=== PATIENT | male | born 1940 | race Caucasian/White ===

== ENCOUNTER → 2016-05-03 | Outpatient (CLI) | payer OTHER | LOC: FCPNEURO 23:06 | PROVIDERS: ATTEND Psychiatry & Neurology Sleep Medicine | DX: G47.33 Obstructive sleep apnea (adult) (pediatric) (principal); G47.39 Other sleep apnea ==

== ENCOUNTER → 2017-07-27 | Outpatient (CLI) | payer OTHER | LOC: BHFA 13:15 | PROVIDERS: ATTEND Internal Medicine Cardiovascular Disease | DX: Z95.2 Presence of prosthetic heart valve (principal) ==

== ENCOUNTER → 2017-08-04 | Outpatient (CLI) | payer OTHER | LOC: BHFA 14:00 | PROVIDERS: ATTEND Internal Medicine Cardiovascular Disease | PROC: 4A12XM4 Monitoring of Cardiac Stress, External Approach (ICD-10-PCS; principal; 2017-08-04) | DX: I25.10 Atherosclerotic heart disease of native coronary artery without angina pectoris (principal) | CPT/HCPCS: 78452; 93017; A9500; J2785 ==

== ENCOUNTER 2017-08-24 08:00 | Observation (INO) | payer OTHER ==
[2017-08-24] MEDS ORDERED: NITROGLYCERIN 1,500 MCG/15 ML VIAL MISC ONE (11:02)
[2017-08-24] MEDS ORDERED: IOPAMIDOL (ISOVUE-370) 150 ML BTL IV ONE (11:05)
[2017-08-24] MEDS ORDERED: CLOPIDOGREL BISULFATE 75 MG TAB ONE (11:57)
[2017-08-24] MEDS ORDERED: ATROPINE SULFATE 1 MG/10 ML SYR ONE (14:09)
[2017-08-24] MEDS ORDERED: ATORVASTATIN CALCIUM 20 MG TAB ONE (19:46)
[2017-08-24] MEDS ORDERED: METOPROLOL TARTRATE 25 MG TAB ONE (19:46)
[2017-08-24] MEDS ORDERED: ATORVASTATIN CALCIUM 20 MG TAB PO SCH (22:45)
[2017-08-25] MEDS ORDERED: LEVOTHYROXINE 50 MCG TAB ONE (03:51)
[2017-08-25] MEDS: METOPROLOL SUCCINATE XR 25 MG TAB PO SCH ×2 (05:45→08:45)
[2017-08-25] MEDS ORDERED: LEVOTHYROXINE 50 MCG TAB PO SCH (06:00)
[2017-08-25] MEDS ORDERED: INSULIN GLARGINE 100 UNITS/ML UNIT SC SCH (09:00)
[2017-08-25] MEDS ORDERED: SPIRONOLACTONE 25 MG TAB PO SCH (09:00)
[2017-08-25] MEDS ORDERED: ASPIRIN 81 MG CHEWABLE TAB PO SCH (09:00)
[2017-08-25] MEDS ORDERED: COLESTIPOL HCL 1 GM TAB PO SCH (09:00)
[2017-08-25] MEDS ORDERED: CLOPIDOGREL BISULFATE 75 MG TAB PO SCH (09:00)
--- NOTE | 2017-08-25 09:43 | PDDXCAT ---
Diagnostic Cath Note - . Date: 08/25/17 Hospital Admissions Clerk: Tiffany Indication: Class I/II angina, intolerance to med therapy or failure to respond , other (CCS Class II angina. Intermediate risk test) - Procedure Access: right groin Procedure: left heart catheterization, coronary angiography, left ventriculogram , vein graft injection, CAZARES injection, right heart catheterization - Materials Left Heart Cath size: 7F Left Heart Cath materials: standard multipack (JL4, JR4, pigtail) Right Heart Cath size: 7F Right Heart Cath materials: PWP catheter - Findings-Left Heart Catheterization LM: The LM is 8mm in size and bifurcates into an LAD and circumflex system. LAD: The LAD is 3.5 mm in size and has been previously stented. The distal stents reveal 80% in-stent restenosis with ABDI III flow. The graft distal to the lesion is atretic and fills with contrast that does not clear consistent with an occlusion of the graft, making it non functional. LCX: The circumflex is dominant. The previously stented segment is widely patent. There is a 95% obstruction of the circumflex OM. ABDI III flow. the graft distal to this lesion does not have competitive flow consistent with occlusion. RCA: The RCA is known to be non-dominant and was not injected. It is about 2.5 mm in size. There is disease consistent with atherosclerosis, but no evidence of flow limiting obstruction is identified. ABDI III flow throughout. rSVG: We were unable to selectively inject the grafts; however, there was no longer evidence of competitive flow in the rSVG to the distal LAD and rSVG to the lateral circumflex. This finding is consistent with occluded grafts. CAZARES: The CAZARES to the LAD diagonal is widely patent and has matured without evidence of obstruction to the level of the anastamosis. EDP: LVEDP is 19 mmHg LVEF: The EF is 50% Wall motion: There are anterior wall motion abnormalities. The ejection fraction is low normal. - Findings-Right Heart Catheterization RA: Mean 12 mmHg RV: Pressure 41/6, End diastolic pressure 13mmHg PA: Pressure: 39/19. Saturation: 64.6% PAOP: Wedge pressure 19mmHg. AO: Saturation 96.5% CO: 4.25 L/min CI: 2.29 L/min/m2 Complications: NONE. Estimated blood loss: <50ml Closure method: manual pressure Assessment: The patient has severe vessel coronary artery disease including flow limiting obstruction of the left circumflex OM (95% pre stent) and 80% mid- LAD in-stent restenosis that both required stent implantation. Plan: Dual antiplatelet therapy with Aspirin 325mg for the first month followed by Aspirin 81mg along with Plavix 75mg daily should be continued for at least 1 year following drug eluting stent implantation. No elective surgery for the first 3 months. Decisions to stop dual antiplatelet therapy before 1 year should involve our office [facility]. We will also continue to treat his coronary disease with aggressive medical therapy including daily statin therapy. Intervention: A 7 Tajik JL4 guiding catheter was used for guide catheter support. A 0.014 Intuition Guide Wire was advanced across the mid-LAD lesion in question (80% in- stent restenosis) under direct fluoroscopic and angiographic guidance. A 2.75 x 15 mm NC Emerge balloon was used to pre-dilate the lesion and was inflated to a maximum pressure of 14 chandra. The balloon was then exchanged for a Synergy 2.75 x 28 mm drug eluting stent. S/p stent implantation there was 10% residual stenosis. ABDI III flow pre and post stent implantation. A Washer Assembler 50 wire was then advanced across the circumflex OM lesion (95% obstruction) under direct fluoroscopic and angiographic guidance. The lesion was primarily stented with a Synergy 2.5 x 16 mm drug eluting stent. A 2.75 x 8 mm NC Emerge balloon was used for post-stent dilation. S/p stent implantation there was 10% residual stenosis. ABDI III flow pre and post stent implantation. Patient Problems: Problems Problem Status Onset Aortic stenosis, severe Acute Ascending aortic aneurysm Acute CAD, multiple vessel Acute Mitral insufficiency Acute Postoperative complete heart block Acute S/P CABG x 3 Acute S/P aortic valve replacement with stentless valve Acute S/P ascending aortic replacement Acute S/P mitral valve repair Acute S/P placement of cardiac pacemaker Acute HTN (hypertension) Chronic Hypothyroidism Chronic Type 2 diabetes mellitus Chronic
--- NOTE | 2017-08-25 11:04 | CPEKG ---
Heart Rate: 68 RR Interval: 882 P-R Interval: 180 QRSD Interval: 146 QT Interval: 448 QTC Interval: 477 P [place]: 0 QRS [place]: -68 T Wave [place]: 100 EKG Severity - ABNORMAL ECG - EKG Impression: A-V DUAL-PACED RHYTHM WITH SOME INHIBITION Electronically Signed By: Michael Stevens 25-Aug-2017 20:35:41
[2017-08-25 12:36] VITALS: BP 136/64
--- NOTE | 2017-08-25 13:06 | GDS ---
[f rep st] DISCHARGE SUMMARY DISCHARGE DIAGNOSES: 1. Coronary artery disease with previous coronary artery bypass graft. He is status post stenting to the left circumflex OM and left anterior descending artery on 08/24/2017. 2. Previous aortic valve repair, mitral valve annuloplasty and ascending aortic aneurysm repair. 3. History of nonsustained ventricular tachycardia. 4. Diabetes. 5. Hyperlipidemia. HOSPITAL COURSE: The patient is a 76-year-old male with a history of AVR, mitral valve annuloplasty, ascending aortic aneurysm repair, three-vessel CABG and left atrial appendage closure in October 2014. His procedure was complicated by complete heart block requiring pacemaker placement and CVA. He presented to our office complaining of dyspnea on exertion. He was found to have 1 short run of nonsustained ventricular tachycardia on June 10. This prompted a nuclear stress test which was abnormal with a small anterior defect consistent with ischemia. Ultimately, the decision was made to proceed with a right and left heart catheterization. For details of the procedure, please see full cardiac cath report. Unfortunately, I am unable to access it secondary to [employer] being down. Briefly, he was found to have significant disease to the left circumflex OM as well as LAD which were both stented with good results. He also had a right heart catheterization which was negative for pulmonary hypertension. Mitral stenosis was also assessed and negative. The following morning, the patient denied any chest discomfort. He did note dizziness going from sitting to a standing position had improved post stenting. PHYSICAL EXAMINATION: GENERAL: Patient appears in no acute distress. VITAL SIGNS: Blood pressure 136/64, heart rate 60, oxygen saturation of 97% on room air, afebrile. LUNGS: Clear to auscultation. No wheezes, rhonchi, or crackles auscultated. CARDIAC: Regular rate and rhythm with positive systolic murmur. EXTREMITIES: No evidence of edema. Right groin where access was obtained for the angiogram is clean and intact without any evidence of infection or significant hematoma. DISCHARGE MEDICATIONS: He will begin Plavix 75 mg daily and increase his aspirin to 325 mg daily. He is aware that he is to hold metformin 1000 mg twice daily for 48 hours post procedure and then to resume normally. He will continue vitamin C, herbal supplement, multivitamin, Lipitor 20 mg at bedtime, vitamin D3, Colestid 2 g twice daily, metoprolol XL 25 mg half tab twice daily, Synthroid 50 mcg daily, insulin detemir 22-26 units daily, fish oil daily, Aldactone 25 mg daily. PLAN: The patient is currently stable and ready for discharge home. He has been given groin precautions. He is aware that he is to hold metformin for 48 hours post procedure and then to resume normally. He will remain on aspirin and Plavix for minimum of 1 year. He will follow up in our office in 1 week as scheduled. Greater than 30 minutes was spent coordinating the patients care today. /[id number]/MODL MTDD
== END 2017-08-25 13:03 | disposition home or self-care (01) ==
LOC: FCATH 08:00 → F2W 11:30
PROVIDERS: ADMIT Internal Medicine Cardiovascular Disease; ATTEND Internal Medicine Cardiovascular Disease
PROC: B2181ZZ Fluoroscopy of Left Internal Mammary Bypass Graft using Low Osmolar Contrast (ICD-10-PCS; principal; 2017-08-24)
PROC: 027134Z Dilation of Coronary Artery, Two Arteries with Drug-eluting Intraluminal Device, Percutaneous Approach (ICD-10-PCS; principal; 2017-08-24)
PROC: B2111ZZ Fluoroscopy of Multiple Coronary Arteries using Low Osmolar Contrast (ICD-10-PCS; principal; 2017-08-24)
PROC: B2151ZZ Fluoroscopy of Left Heart using Low Osmolar Contrast (ICD-10-PCS; principal; 2017-08-24)
PROC: B21F1ZZ Fluoroscopy of Other Bypass Graft using Low Osmolar Contrast (ICD-10-PCS; principal; 2017-08-24)
PROC: 4A023N8 Measurement of Cardiac Sampling and Pressure, Bilateral, Percutaneous Approach (ICD-10-PCS; principal; 2017-08-24)
DX: I25.119 Atherosclerotic heart disease of native coronary artery with unspecified angina pectoris (principal); T82.857A Stenosis of other cardiac prosthetic devices, implants and grafts, initial encounter; Z95.1 Presence of aortocoronary bypass graft; Z95.2 Presence of prosthetic heart valve; E11.9 Type 2 diabetes mellitus without complications; E78.5 Hyperlipidemia, unspecified; Z79.4 Long term (current) use of insulin
CPT/HCPCS: 93005; 93461; C1725; C1769; C1874; C1887; C9600; J1644; Q9967; J0461

== ENCOUNTER 2017-12-31 09:36 | Day surgery (SDC) | payer OTHER ==
[2017-12-31] MEDS ORDERED: BENZOCAINE UNIT DOSE SPRAY HURRICAINE MM ONE (09:40)
[2017-12-31] MEDS ORDERED: ATROPINE SULFATE 1 MG/10 ML SYR IVP ONE (09:40)
[2017-12-31] MEDS ORDERED: fentaNYL 100 MCG/2 ML INJ IVP ONE (09:40)
[2017-12-31] MEDS ORDERED: NS 500 ML IV ONE (09:40)
[2017-12-31] MEDS ORDERED: MIDAZOLAM 2 MG/2 ML VIAL IVP ONE (09:40)
--- NOTE | 2017-12-31 10:49 | PDANEPAE ---
ANE History of Present Illness A flutter for STEFAN/CV ANE Past Medical History - Cardiovascular History Hx Hypertension: Yes Hx Arrhythmias: No Hx Chest Pain: No Hx Coronary Artery / Peripheral Vascular Disease: Yes Hx CHF / Valvular Disease: Yes Hx Palpitations: No Cardiovascular History Comment: HTN. AORTIC STENOSIS. ASCENDING AORTIC ANEURYSM. BICUSPID AORTIC VALVE. CAD. HYPERCHOLESTEROLEMIA. STENTS X5 - Pulmonary History Hx COPD: No Hx Asthma/Reactive Airway Disease: No Hx Recent Upper Respiratory Infection: No Hx Oxygen in Use at Home: No Hx Sleep Apnea: Yes Pulmonary History Comment: TEO TRIGGERS NO DX. ASTHMA A CHILD - Neurologic History Hx Cerebrovascular Accident: No Hx Seizures: No Hx Dementia: No - Endocrine History Hx Diabetes: Yes Endocrine History Comment: TYPE 2 - Renal History Hx Renal Disorders: No Renal History Comment: HX OF KIDNEY STONES 20 YEARS AGO - Liver History Hx Hepatic Disorders: No - Neurological & Psychiatric Hx Hx Neurological and Psychiatric Disorders: No - Cancer History Hx Cancer: Yes Cancer History Comment: SKIN CA- DR DASH IS GANG BOSS - Congenital Disorder History Hx Congenital Disorders: No - GI History Hx Gastrointestinal Disorders: No - Other Health History Other Health History: NONE - Chronic Pain History Chronic Pain: No - Surgical History Prior Surgeries: LEFT QUADRICEP TENDON REPAIR WITH DR DOVER 10/02/13. STENTS X5. 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 ANE Review of Systems Review of systems is: negative Review of Systems: - Exercise capacity METS (RN): 4 METS - Pacemaker Date Pacemaker Last Checked: 10/30/14 ANE Patient History - Allergies Allergies/Adverse Reactions: No Known Allergies Allergy (Unverified 09/24/14 08:16) - Home Medications Home medications: home medication list seen and reviewed Home Medications: Ascorbic Acid [Vitamin C 500 mg (*)] 500 mg PO DAILY 10/23/14 [Last Taken ] Atorvastatin Calcium [Lipitor 20 mg (*)] 20 mg PO HS 10/23/14 [Last Taken ] Herbals/Supplements -Info Only 1 ea PO DAILY 10/23/14 [Last Taken 08/23/17] Multivitamins [Multivitamin (*)] 1 each PO DAILY 10/23/14 [Last Taken 08/23/17] metFORMIN HCL [Glucophage 500 mg (*)] 1,000 mg PO BIDMEAL 10/23/14 [Last Taken 08/23/17] Cholecalciferol Vit D3 [Vitamin D3 (*)] 5,000 units PO DAILY 03/05/16 [Last Taken 08/23/17] Colestipol HCl [Colestid (*)] 2 gm PO BID 08/17/17 [Last Taken 08/23/17] Insulin Detemir [Levemir Flextouch] 22 - 26 unit SQ DAILY 08/17/17 [Last Taken Unknown] Levothyroxine [Synthroid 50 mcg (*)] 50 mcg PO DAILY06 08/17/17 [Last Taken 01/30] Metoprolol Succinate Xr [Toprol Xl 25 mg (*)] 12.5 mg PO BID 08/17/17 [Last Taken 08/23/17] [place]-3 Fatty Acids [Fish Oil 1000 mg (*)] 1,000 mg PO DAILY 08/17/17 [Last Taken 08/23/17] Spironolactone [Aldactone 25 MG (*)] 25 mg PO DAILY 08/24/17 [Last Taken Unknown ] - Anes Hx Anes Hx: no prior problems - Smoking Hx Smoking Status: Former smoker - Family Anes Hx Family Hx Anesthesia Complications: NONE ANE Labs/Vital Signs - Labs Result Diagrams: 12/31/17 10:45 - Vital Signs Height: 170.18 cm Weight: 73.482 kg ANE Physical Exam - Airway Neck exam: FROM Mallampati Score: Class 2 - Pulmonary Pulmonary: no respiratory distress - Cardiovascular Cardiovascular: regular rate and rhythym - ASA Status ASA Status: III ANE Anesthesia Plan Anesthesia Plan: GA with mask
--- NOTE | 2017-12-31 10:50 | POSTANESTH ---
Post Anesthetic Evaluation Cardiovascular Status: Normal, Stable Respiratory Status: Normal, Stable Level of Consciousness/Mental Status: Mildly Sleepy, Arousable Pain Control: Adequate, Prn Tx Ordered Nausea/Vomiting Control: Adequate, Prn Tx Ordered Complications Possibly Related to Anesthesia: None Noted
[2017-12-31] MEDS ORDERED: PROPOFOL 200 MG/20 ML VIAL ONE (10:57)
--- NOTE | 2017-12-31 11:04 | PDHPUP ---
History & Physical Update H&P update statement: This history and physical update is based on an assessment of the patient which was completed after admission or registration (within 24 hours), but prior to the surgery/procedure. H&P update: H&P reviewed & patient examined, no change in patient's condition since H&P completed
[2017-12-31 11:09] LABS: INR 1.47 (0.83-1.16)
--- NOTE | 2017-12-31 11:23 | CPEKG ---
Test Reason : OPEN Blood Pressure : / mmHG Vent. Rate : 075 BPM Atrial Rate : 000 BPM P-R Int : 068 ms QRS Dur : 180 ms QT Int : 453 ms P-R-T Axes : 000 -72 091 degrees QTc Int : 506 ms Ventricular-paced rhythm Confirmed by Michael Stevens ([id number]) on 12/31/2017 11:22:43 AM Referred By: Confirmed By:Michael Stevens
--- NOTE | 2017-12-31 11:37 | PDTEE1 ---
STEFAN Cardioversion Procedure Procedure: electrical cardioversion, transesophageal echo Indications: other (atrial flutter) Consent: signed and in chart Anticoagulation: eliquis Procedural Details: Pads were placed in anterior-posterior position. STEFAN probe was advanced and standard images obtained. There is no evidence of left atrial or left atrial appendage thrombus. Synchronized cardioversion attempt #1: 200J Results: normal sinus rhythm Conclusions: successful cardioversion (Pacemaker interrogation confirmed atrial flutter prior to cardioversion and return of sinus rhythm after.) Patient Problems: Problems Problem Status Onset Aortic stenosis, severe Acute Ascending aortic aneurysm Acute CAD, multiple vessel Acute Mitral insufficiency Acute Postoperative complete heart block Acute S/P CABG x 3 Acute S/P aortic valve replacement with stentless valve Acute S/P ascending aortic replacement Acute S/P mitral valve repair Acute S/P placement of cardiac pacemaker Acute HTN (hypertension) Chronic Hypothyroidism Chronic Type 2 diabetes mellitus Chronic
== END 2017-12-31 12:43 | disposition home or self-care (01) ==
LOC: FCATH 09:36
PROVIDERS: ATTEND Internal Medicine Interventional Cardiology
DX: I48.92 Unspecified atrial flutter (principal); I71.2 Thoracic aortic aneurysm, without rupture; I25.10 Atherosclerotic heart disease of native coronary artery without angina pectoris; I25.2 Old myocardial infarction; I10 Essential (primary) hypertension; E03.9 Hypothyroidism, unspecified; E11.9 Type 2 diabetes mellitus without complications; E78.5 Hyperlipidemia, unspecified; Z79.4 Long term (current) use of insulin; Z87.891 Personal history of nicotine dependence; Z95.0 Presence of cardiac pacemaker; Z95.5 Presence of coronary angioplasty implant and graft; Z95.2 Presence of prosthetic heart valve; Z95.1 Presence of aortocoronary bypass graft
CPT/HCPCS: J0461; J2704

== ENCOUNTER → 2018-04-19 | Outpatient (CLI) | payer OTHER | LOC: BHLMT 13:30 | PROVIDERS: ATTEND Internal Medicine Cardiovascular Disease | DX: I48.91 Unspecified atrial fibrillation (principal); R42 Dizziness and giddiness | CPT/HCPCS: 93005-PO ==